=== PATIENT | male | born 1990 ===

== ENCOUNTER → 2017-06-23 | Outpatient (REF) | payer OTHER ==
[2017-06-23 10:04] LABS: SEMEN APPEARANCE OPAQUE (OPAQUE); SEMEN VISCOSITY LIQUID (LIQUID)
[2017-06-23 10:05] LABS: % NORMAL FORMS 5 % (>=4); IMMOTILITY 62 %; NON PROGRESSIVE MOTILITY (c) 15 %; PROGRESSIVE MOTILITY (a) 23 % (>=32); SPERM CONCENTRATION 34.8 M/ml (>=15.0); SPERM# 104.4 M/Ejac (>=39); TOTAL MOTILITY 38 % (>=40); TOTAL PROGRESSIVE SPERM 24.1 M/Ejac.; WBC CONCENTRATION >1 M/ml (<=1 M/ml)
== END ==
LOC: M LAB REF 08:54
DX: Z31.41 Encounter for fertility testing (principal)